=== PATIENT | female | born 1985 | race Caucasian/White ===

== ENCOUNTER → 2016-11-25 | Outpatient (CLI) | payer OTHER | LOC: LBRF 23:53 | DX: Z02.83 Encounter for blood-alcohol and blood-drug test (principal) | CPT/HCPCS: 36415 ==

== ENCOUNTER → 2020-07-25 | Outpatient (CLI) | payer OTHER ==
[~2020-07-25] MED LIST: IBUPROFEN600 MG PO; MACROBID 100 M100 MG PO; NAPROSYN500 MG PO; PYRIDIUM200 MG PO
== END ==
LOC: KOH-I 12:18
DX: M25.511 Pain in right shoulder (principal); M54.9 Dorsalgia, unspecified; G89.29 Other chronic pain
CPT/HCPCS: 72100; 73030

== ENCOUNTER → 2021-07-20 | Outpatient (CLI) | payer OTHER ==
[2021-07-20 13:41] LABS: HEMOGLOBIN 11.9 gm/dl (12.3-15.3); RED BLOOD COUNT 4.15 M/UL (4.00-5.10); WHITE BLOOD COUNT 5.1 K/UL (4.5-11.0)
[2021-07-20 17:19] LABS: BUN/CREATININE RATIO 20 (0-10)
== END ==
LOC: LAB 13:20
PROVIDERS: Family Medicine
DX: E78.5 Hyperlipidemia, unspecified (principal); E03.9 Hypothyroidism, unspecified; E53.8 Deficiency of other specified B group vitamins; E55.9 Vitamin D deficiency, unspecified
CPT/HCPCS: 36415; 80053; 80061; 82607; 84439; 84443; 85027

== ENCOUNTER → 2021-11-29 | Outpatient (CLI) | payer OTHER ==
[2021-11-29 12:56] LABS: HEMOGLOBIN 13.5 gm/dl (12.3-15.3); RED BLOOD COUNT 4.7 M/UL (4.00-5.10); WHITE BLOOD COUNT 5.8 K/UL (4.5-11.0)
[2021-11-29 16:11] LABS: BUN/CREATININE RATIO 18 (0-10)
[2021-11-30 08:14] LABS: CHOLESTEROL, TOTAL 243 mg/dL (100-199); FERRITIN 95 ng/mL (15-150); HDL CHOLESTEROL 35 mg/dL (>39); IRON BIND.CAP.(TIBC) 352 ug/dL (250-450); IRON SATURATION 36 % (15-55); IRON, SERUM 127 ug/dL (27-159); LDL CHOLESTEROL CALC 159 mg/dL (0-99); LDL/HDL RATIO 4.5 ratio (0.0-3.2); T. CHOL/HDL RATIO 6.9 ratio (0.0-4.4); TRIGLYCERIDES 262 mg/dL (0-149); UIBC 225 ug/dL (131-425)
[2021-11-30 17:11] LABS: AMPHETAMINES, URINE Negative ng/mL (Cutoff=1000); BARBITURATE Negative ng/mL (Cutoff=200); BENZODIAZEPINES Negative ng/mL (Cutoff=200); CANNABINOIDS Negative ng/mL (Cutoff=20); COCAINE (METABOLITE) Negative ng/mL (Cutoff=300); CREATININE 246.1 mg/dL (20.0-300.0); MEPERIDINE Negative ng/mL (Cutoff=200); METHADONE Negative ng/mL (Cutoff=300); OPIATES Negative ng/mL (Cutoff=300); PHENCYCLIDINE Negative ng/mL (Cutoff=25); PROPOXYPHENE Negative ng/mL (Cutoff=300)
== END ==
LOC: LAB 12:27
PROVIDERS: Family Medicine
DX: E03.9 Hypothyroidism, unspecified (principal); E55.9 Vitamin D deficiency, unspecified; E78.5 Hyperlipidemia, unspecified; D64.9 Anemia, unspecified; Z79.899 Other long term (current) drug therapy
CPT/HCPCS: 36415; 80053; 80061; 80307; 82728; 83540; 83550; 83735; 84439; 84443; 85027; 85045